=== PATIENT | male | born 1975 | race Caucasian/White ===

== ENCOUNTER 2018-06-15 20:21 | Inpatient (IN) | payer SELFPAY ==
[~2018-06-15] VITALS: Ht 185.4 cm; Wt 95.5 kg
[2018-06-15 21:05] LABS: BASOPHILS # (AUTO) 0.2 X10'3 (0-0.2); BASOPHILS % (AUTO) 1.2 % (0-1); EOSINOPHILS # (AUTO) 0.1 X10'3 (0-0.9); EOSINOPHILS % (AUTO) 0.9 % (0-6); HEMATOCRIT 32.2 % (42.0-52.0); HEMOGLOBIN 10.4 g/dl (14.0-17.9); LYMPHOCYTES # (AUTO) 2.7 X10'3 (1.1-4.8); LYMPHOCYTES % (AUTO) 17.5 % (21-51); MEAN CORPUSCULAR HGB CONC 32.3 g/dL (33.0-36.5); MEAN CORPUSCULAR VOLUME 83.4 FL (78-98); MEAN PLATELET VOLUME 6.9 FL (7.4-10.4); MONOCYTES # (AUTO) 1.5 X10'3 (0-0.9); MONOCYTES % (AUTO) 9.8 % (2-12); NEUTROPHILS # (AUTO) 10.8 X10'3 (1.8-7.7); NEUTROPHILS % (AUTO) 70.6 % (42-75); PLATELET COUNT 532 X10'3 (140-440); RED BLOOD COUNT 3.86 X10'6 (4.70-6.10); WHITE BLOOD COUNT 15.3 X10'3 (4.5-11.0)
[2018-06-15 21:15] LABS: ALANINE AMINOTRANSFERASE 31 U/L (12-78); ALBUMIN 2.9 G/DL (3.4-5.0); ALBUMIN/GLOBULIN RATIO 0.6 (1.1-1.5); ALKALINE PHOSPHATASE 63 IU/L (46-116); ANION GAP 10 (8-16); ASPARTATE AMINO TRANSFERASE 40 U/L (10-37); BILIRUBIN,TOTAL 0.5 MG/DL (0.1-1.0); BLOOD UREA NITROGEN 14 MG/DL (7-18); CALCIUM 9.6 MG/DL (8.5-10.1); CHLORIDE 100 MMOL/L (99-107); GLUCOSE 115 MG/DL (70-104); POTASSIUM 4.4 MMOL/L (3.5-5.1); SODIUM 136 MMOL/L (135-145); TOTAL CARBON DIOXIDE 25.8 MMOL/L (24-32); TOTAL PROTEIN 7.9 G/DL (6.4-8.2); eGFR 82 ML/MIN
[2018-06-15] MEDS ORDERED: HYDROmorphone 1 mg/ml syringe IV ONE ×2 (21:40→23:35)
[2018-06-15] MEDS ORDERED: ondansetron/PF 4mg/2ml inj IV ONE (21:40)
[2018-06-15] MEDS ORDERED: piperacillin/tazo 3.375gm/50ml 50 ML IV ONE (22:20)
--- NOTE | 2018-06-15 22:50 | NUR ---
Jessica: [phone]
[2018-06-15] MEDS ORDERED: HYDR-4353 PO (22:53)
[2018-06-15] MEDS ORDERED: OXYC-658 PO (22:53)
[2018-06-15] MEDS ORDERED: ondansetron/PF 4mg/2ml inj IV PRN (23:00)
[2018-06-15] MEDS ORDERED: mag hydrox/Alum hydrox/simeth 30ml oral suspension PO PRN (23:00)
[2018-06-15] MEDS ORDERED: magnesium Cl slow-release 64mg tablet PO PRN (23:00)
[2018-06-15] MEDS ORDERED: potassium Cl 20 mEq SR tablet PO PRN ×2 (23:00)
[2018-06-15] MEDS ORDERED: potassium Cl 40MEQ/NS 500ml 500 ML IV PRN ×2 (23:00)
[2018-06-15] MEDS ORDERED: magnesium hydroxide 30ml (MOM) UD suspension PO PRN (23:00)
[2018-06-15] MEDS ORDERED: acetaminophen 325mg tablet PO PRN ×2 (23:00)
[2018-06-15] MEDS ORDERED: magnesium 2GM in 50ml NS 50 ML IV PRN (23:00)
[2018-06-15] MEDS ORDERED: HYDROcodone/acetaminophen 5mg/325mg tablet PO PRN (23:00)
[2018-06-15] MEDS ORDERED: magnesium 4gm in 100ml NS 100 ML IV PRN (23:00)
[2018-06-15] MEDS ORDERED: morphine 4 MG/ML inj SYRINge IV PRN ×2 (23:00)
[2018-06-15] MEDS: normal saline 1000ml 1,000 ML IV SCH (23:15)
[2018-06-15] MEDS: vancomycin/NS 1 GM ADD-VANTAGE 500 ML IV SCH (23:15)
[2018-06-15] MEDS ORDERED: LORazepam 2 mg/ml vial IV ONE (23:20)
[2018-06-16] MEDS: vancomycin/NS 1 GM ADD-VANTAGE 500 ML IV SCH (01:21)
[2018-06-16] MEDS: morphine 2 MG/ML inj. syringe IV PRN ×4 (05:20→23:28)
[2018-06-16] MEDS: HYDROcodone/acetaminophen 10/325mg tab PO PRN ×2 (05:37→17:00)
[2018-06-16] MEDS: piperacillin/tazo 3.375gm/50ml 50 ML IV SCH ×3 (06:34→22:37)
[2018-06-16 06:51] LABS: BASOPHILS # (AUTO) 0.1 X10'3 (0-0.2); EOSINOPHILS # (AUTO) 0.3 X10'3 (0-0.9); EOSINOPHILS % (AUTO) 2.4 % (0-6); HEMATOCRIT 28.3 % (42.0-52.0); HEMOGLOBIN 9.4 g/dl (14.0-17.9); LYMPHOCYTES % (AUTO) 16.1 % (21-51); MEAN CORPUSCULAR HEMOGLOBIN 27.6 PG (27.0-31.0); MEAN CORPUSCULAR HGB CONC 33.3 g/dL (33.0-36.5); MEAN CORPUSCULAR VOLUME 82.8 FL (78-98); MEAN PLATELET VOLUME 6.7 FL (7.4-10.4); MONOCYTES # (AUTO) 1.5 X10'3 (0-0.9); MONOCYTES % (AUTO) 12.3 % (2-12); NEUTROPHILS # (AUTO) 8.6 X10'3 (1.8-7.7); NEUTROPHILS % (AUTO) 68.2 % (42-75); PLATELET COUNT 467 X10'3 (140-440); RED BLOOD COUNT 3.42 X10'6 (4.70-6.10); RED CELL DISTRIBUTION WIDTH 14.2 % (11.5-14.5); WHITE BLOOD COUNT 12.6 X10'3 (4.5-11.0)
[2018-06-16 06:59] LABS: ALBUMIN 2.5 G/DL (3.4-5.0); ANION GAP 7 (8-16); BLOOD UREA NITROGEN 16 MG/DL (7-18); CALCIUM 9.1 MG/DL (8.5-10.1); CHLORIDE 103 MMOL/L (99-107); CREATININE 0.84 MG/DL (0.60-1.10); GLUCOSE 96 MG/DL (70-104); POTASSIUM 4.3 MMOL/L (3.5-5.1); SODIUM 136 MMOL/L (135-145); TOTAL CARBON DIOXIDE 25.7 MMOL/L (24-32); eGFR > 90 ML/MIN
[2018-06-16] MEDS: K and/or MAG REPLACEMENT MC SCH (08:00)
--- NOTE | 2018-06-16 08:19 | NUR ---
PAGED DR YEE, HE CALLED BACK, STATES NO SURGERY, ADMIT FOR MONITORING 1-2 DAYS, CONTINUE ABX, AND PT CAN HAVE REGULAR DIET.
[2018-06-16] MEDS: lactobacillus rhamnosus 10,000 MMU CELLS/CAPSULE PO SCH ×2 (08:21→21:04)
[2018-06-16] MEDS: docusate sod 100mg capsule PO SCH ×2 (08:21→21:04)
[2018-06-16] MEDS: normal saline 1000ml 1,000 ML IV SCH ×3 (10:03→22:47)
[2018-06-16 11:16] LABS: C-REACTIVE PROTEIN 12.62 MG/DL (0.0-0.5)
[2018-06-16] MEDS: gabapentin 300mg capsule PO SCH ×2 (12:21→21:04)
[2018-06-16] MEDS ORDERED: NO HOME MEDS (12:23)
--- NOTE | 2018-06-16 15:44 | NUR ---
ATTEMPTED TO CALL REPORT, NURSE UNABLE TO GET REPORT RIGHT NOW.
--- NOTE | 2018-06-16 16:30 | NUR ---
ASSUMED CARE, RECEIVED REPORT FROM DAMIAN QUIJANO, PATIENT A&O X4, RESTING COMFORTABLY. WILL CONTINUE TO MONITOR.
[2018-06-16 16:50] VITALS: BP 137/89
[2018-06-16] MEDS ORDERED: CYCL10TA26 PO (17:19)
[2018-06-16] MEDS ORDERED: CEPH-572 PO (17:19)
[2018-06-16] MEDS ORDERED: ASPI81TA52 PO (17:19)
[2018-06-16 18:00] VITALS: BP 138/84
--- NOTE | 2018-06-16 18:15 | NUR ---
Problems reprioritized. Patient report given, questions answered & plan of care reviewed with JACEK QUIJANO.
[2018-06-16] MEDS: dronabinol 2.5mg capsule PO PRN (21:33)
[2018-06-16 22:00] VITALS: BP 133/85
[2018-06-17] MEDS ORDERED: BENZOCAINE TOP PRN (03:15)
[2018-06-17] MEDS ORDERED: MENTHOL TOP PRN (03:15)
[2018-06-17] MEDS ORDERED: ANBESOL TP (03:22)
[2018-06-17] MEDS: piperacillin/tazo 3.375gm/50ml 50 ML IV SCH (05:48)
[2018-06-17 06:00] VITALS: BP 162/108
--- NOTE | 2018-06-17 06:10 | NUR ---
Patient in room [facility] 4023. I have received report from Marcia QUIJANO and had the opportunity to ask questions and assume patient care.
[2018-06-17 07:06] LABS: BASOPHILS # (AUTO) 0.1 X10'3 (0-0.2); BASOPHILS % (AUTO) 0.7 % (0-1); EOSINOPHILS # (AUTO) 0.3 X10'3 (0-0.9); EOSINOPHILS % (AUTO) 2.2 % (0-6); HEMATOCRIT 30.1 % (42.0-52.0); HEMOGLOBIN 9.7 g/dl (14.0-17.9); LYMPHOCYTES # (AUTO) 1.7 X10'3 (1.1-4.8); MEAN CORPUSCULAR HEMOGLOBIN 26.8 PG (27.0-31.0); MEAN CORPUSCULAR HGB CONC 32.4 g/dL (33.0-36.5); MEAN CORPUSCULAR VOLUME 82.9 FL (78-98); MEAN PLATELET VOLUME 6.7 FL (7.4-10.4); MONOCYTES # (AUTO) 1.3 X10'3 (0-0.9); MONOCYTES % (AUTO) 10.6 % (2-12); NEUTROPHILS # (AUTO) 8.9 X10'3 (1.8-7.7); NEUTROPHILS % (AUTO) 72.5 % (42-75); PLATELET COUNT 561 X10'3 (140-440); RED BLOOD COUNT 3.63 X10'6 (4.70-6.10); RED CELL DISTRIBUTION WIDTH 14.2 % (11.5-14.5); WHITE BLOOD COUNT 12.3 X10'3 (4.5-11.0)
[2018-06-17 07:25] LABS: ALBUMIN 2.6 G/DL (3.4-5.0); ANION GAP 9 (8-16); BLOOD UREA NITROGEN 14 MG/DL (7-18); BUN/CREATININE RATIO 17.5 (5.4-32.0); CHLORIDE 102 MMOL/L (99-107); GLUCOSE 102 MG/DL (70-104); MAGNESIUM 1.9 MG/DL (1.5-2.4); POTASSIUM 4.3 MMOL/L (3.5-5.1); SODIUM 137 MMOL/L (135-145); TOTAL CARBON DIOXIDE 25.6 MMOL/L (24-32); eGFR > 90 ML/MIN
[2018-06-17] MEDS: K and/or MAG REPLACEMENT MC SCH (08:00)
[2018-06-17] MEDS: docusate sod 100mg capsule PO SCH (08:21)
[2018-06-17] MEDS: lactobacillus rhamnosus 10,000 MMU CELLS/CAPSULE PO SCH (08:21)
[2018-06-17] MEDS: gabapentin 300mg capsule PO SCH (08:21)
[2018-06-17] MEDS: HYDROcodone/acetaminophen 10/325mg tab PO PRN (08:24)
[2018-06-17] MEDS: normal saline 1000ml 1,000 ML IV SCH (08:28)
[2018-06-17 10:00] VITALS: BP 146/90
[2018-06-17] MEDS ORDERED: HYDR-3972 PO (10:23)
[2018-06-17] MEDS: dronabinol 2.5mg capsule PO PRN (10:24)
--- NOTE | 2018-06-17 10:53 | NUR ---
Prabha [id number]. Re Parag Allred [id number], Honey James NP (ortho) discharging patient today.
--- NOTE | 2018-06-17 12:32 | NUR ---
Patient stable for discharge home today, all instructions given to patient and prescriptions for pain medications given to patient. All questions answered.
== END 2018-06-17 12:00 | disposition home or self-care (01) | DRG 566 ==
LOC: ER 20:23 → ED HOLD 22:58 → EDBEDREQ 06-16 14:48 → ORTHO 4S 06-16 17:13
PROVIDERS: ADMIT Hospitalist; ATTEND Hospitalist
PROC: 0S9C3ZZ Drainage of Right Knee Joint, Percutaneous Approach (ICD-10-PCS; principal; 2018-06-15)
DX: M25.461 Effusion, right knee (principal); Z96.651 Presence of right artificial knee joint; D64.9 Anemia, unspecified; F12.90 Cannabis use, unspecified, uncomplicated
CPT/HCPCS: 36415; 80048; 80053; 83605; 83735; 84145; 85025; 85651; 86140; 87040; 87070; 93971; 96365; 96375; 99285; G0378; J1170; J2060; J2270; J2405; J2543; J3370; J7030; Q0167

== ENCOUNTER 2021-03-26 20:07 | Emergency (ER) | payer BC ==
[~2021-03-26] VITALS: Ht 182.9 cm; Wt 87.6 kg
[~2021-03-26 20:07] MED LIST: ANBESOL TP; ASPI81TA52 PO; CEPH-572 PO; CYCL10TA26 PO; HYDR-3972 PO
[2021-03-26 20:11] VITALS: BP 167/112
[2021-03-26 21:05] LABS: BASOPHILS # (AUTO) 0.1 X10'3 (0-0.2); BASOPHILS % (AUTO) 0.7 % (0-1); EOSINOPHILS % (AUTO) 0.2 % (0-6); HEMATOCRIT 42.5 % (42.0-52.0); HEMOGLOBIN 14.3 g/dl (14.0-17.9); LYMPHOCYTES % (AUTO) 24.7 % (21-51); MEAN CORPUSCULAR HEMOGLOBIN 28.4 PG (27.0-31.0); MEAN CORPUSCULAR HGB CONC 33.7 g/dL (33.0-36.5); MEAN CORPUSCULAR VOLUME 84.2 FL (78-98); MEAN PLATELET VOLUME 7.7 FL (7.4-10.4); MONOCYTES # (AUTO) 0.9 X10'3 (0-0.9); MONOCYTES % (AUTO) 7.1 % (2-12); NEUTROPHILS # (AUTO) 8.2 X10'3 (1.8-7.7); NEUTROPHILS % (AUTO) 67.3 % (42-75); PLATELET COUNT 340 X10'3 (140-440); RED BLOOD COUNT 5.04 X10'6 (4.70-6.10); RED CELL DISTRIBUTION WIDTH 14.4 % (11.5-14.5); WHITE BLOOD COUNT 12.2 X10'3 (4.5-11.0)
[2021-03-26 21:18] LABS: ALANINE AMINOTRANSFERASE 24 U/L (12-78); ALBUMIN 4.2 G/DL (3.4-5.0); ALKALINE PHOSPHATASE 82 IU/L (46-116); ANION GAP 10 (8-16); ASPARTATE AMINO TRANSFERASE 23 U/L (10-37); BILIRUBIN,TOTAL 0.3 MG/DL (0.1-1.0); BLOOD UREA NITROGEN 14 MG/DL (7-18); BUN/CREATININE RATIO 15.6 (5.4-32.0); CHLORIDE 101 MMOL/L (99-107); GLUCOSE 109 MG/DL (70-104); POTASSIUM 3.6 MMOL/L (3.5-5.1); SODIUM 137 MMOL/L (135-145); TOTAL CARBON DIOXIDE 26.2 MMOL/L (24-32); TOTAL PROTEIN 8.5 G/DL (6.4-8.2); eGFR > 90 ML/MIN
== END 2021-03-27 03:08 | disposition left against medical advice (07) ==
LOC: ER 20:08
DX: R07.89 Other chest pain (principal); Z53.21 Procedure and treatment not carried out due to patient leaving prior to being seen by health care provider
CPT/HCPCS: 36415; 71045; 80053; 83880; 84484; 85025; 93005